=== PATIENT | male | born 1965 | race Caucasian/White ===

== ENCOUNTER 2021-01-19 13:26 | Outpatient (CLI) | payer SELFPAY ==
[2021-01-19 15:08] LABS: ALT (SGPT) 57 U/L (8-55); AST (SGOT) 28 U/L (5-34); Albumin 4.5 g/dL (3.5-5.0); Alkaline Phosphatase 70 U/L (40-110); Anion Gap 16 mmol/L (10-20); BUN (Urea Nitrogen) 11 mg/dL (8.4-25.7); Bilirubin, Total 1.5 mg/dL (0.2-1.2); Calc. Creatinine Clearance 0 mL/min (70-130); Calcium 9.3 mg/dL (7.8-10.44); Carbon Dioxide 28 mmol/L (22-29); Chloride 100 mmol/L (98-107); Globulin 2.9 g/dL (2.4-3.5); Glucose 132 mg/dL (70-105); Potassium 4.4 mmol/L (3.5-5.1); Protein, Total 7.4 g/dL (6.0-8.3); Sodium 140 mmol/L (136-145)
[2021-01-19 15:17] LABS: #Basophils 0.1 thou/uL (0.0-0.2); #Eosinphils 0.1 thou/uL (0.0-0.7); #Lymphocytes 2.3 thou/uL (1.20-3.40); #Monocytes 0.7 thou/uL (0.11-0.59); %Basophils 0.9 % (0.0-1.0); %Eosinophils 0.7 % (0.0-10.0); %Lymphocytes 28.5 % (21.0-51.0); %Monocytes 8.3 % (0.0-10.0); %Neutrophils 61.7 % (42.0-75.0); Hemoglobin 16.5 g/dL (14.0-18.0); Mean Corpuscular Hemoglobin 27.1 pg (27.0-31.0); Mean Corpuscular Volume 90.2 fL (78.0-98.0); Mean Platelet Volume 7.9 fL (7.4-10.4); Platelet Count 274 thou/uL (130-400); Red Blood Cell (RBC) Count 6.09 mill/uL (4.70-6.10); White Blood Cell (WBC) Count 8.1 thou/uL (4.8-10.8)
[2021-01-19 21:44] LABS: Hemoglobin A1c 6.9 % (4.0-6.0)
[2021-01-20 15:16] LABS: Cardiac Risk 4.9 (Less than 4.5); LDL Cholesterol, Calculated 123 mg/dL
[2021-01-20 17:46] LABS: Triglycerides 201 mg/dL (Less than 150)
[2021-01-20 17:51] LABS: Cholesterol 206 mg/dl (< 200 Desired)
[2021-01-20 17:52] LABS: HDL Cholesterol 44 mg/dL (>60 Neg Risk)
== END 2021-01-19 13:27 | disposition home or self-care (01) ==
LOC: NAV LAB 13:26
PROVIDERS: ATTEND Pathology Anatomic Pathology & Clinical Pathology
DX: Z00.00 Encounter for general adult medical examination without abnormal findings (principal)
CPT/HCPCS: 80053; 80061; 83036; 84443; 85025

== ENCOUNTER 2021-06-15 17:06 | Outpatient (CLI) | payer SELFPAY ==
[2021-06-18 16:43] LABS: SARS-CoV-2 IgG Ab Non-Reactive (NonReactive)
[2021-06-18 16:44] LABS: SARS-CoV-2 IgG Index 0.04 S/CO (< 1.40)
== END 2021-06-15 17:07 | disposition home or self-care (01) ==
LOC: NAV LAB 17:06
PROVIDERS: ATTEND Family Medicine
DX: Z01.84 Encounter for antibody response examination (principal); Z20.822 Contact with and (suspected) exposure to COVID-19
CPT/HCPCS: 36415; 86769